=== PATIENT | female | born 1990 | race Two or more races ===

== ENCOUNTER 2019-07-08 16:52 | Emergency (ER) | payer OTHER ==
[2019-07-08 16:58] VITALS: BP 122/81; PULSE 100; TEMP 99.5; BMI 20.9
[2019-07-08] MEDS ORDERED: ACETAMINOPHEN 500 MG TABLET (FP) PO ONE (19:10)
--- NOTE | 2019-07-08 19:10 | PDOC ---
History of Present Illness - General Chief Complaint: Pain Stated Complaint: HEADACHE Time Seen by Provider: 07/08/19 19:06 History Source: Patient - History of Present Illness Initial Comments: 07/08/19 19:37 28 year old female c/o bodyaches, cough chills, fever x 1 day. denies dysuria, hematuria, denies cough, chest , congestion. 1 Past History - Past Medical History Allergies/Adverse Reactions: Allergies Allergy/AdvReac Type Severity Reaction Status Date / Time No Known Allergies Allergy Verified 07/08/19 16:57 COPD: No - Psycho Social/Smoking Cessation Hx Smoking History: Never smoked Review of Systems - Review of Systems Able to Perform ROS?: Yes Is the patient limited Kinyarwanda proficient: No Constitutional: Yes: Fever, Other (bodyaches) : Yes: Flank Pain (left) Neurological: Yes: Headache *Physical Exam - Vital Signs Last Vital Signs Temp Pulse Resp BP Pulse Ox 99.5 F 100 H 18 122/81 99 07/08/19 16:55 07/08/19 16:55 07/08/19 16:55 07/08/19 16:55 07/08/19 16:55 - Physical Exam General Appearance: Yes: Appropriately Dressed HEENT: positive: Normal ENT Inspection Respiratory/Chest: positive: Lungs Clear, Normal Breath Sounds Cardiovascular: positive: Tachycardia Gastrointestinal/Abdominal: positive: Normal Bowel Sounds, Soft. negative: Tender Musculoskeletal: positive: Normal Inspection Extremity: positive: Normal Capillary Refill, Normal Inspection, Normal Range of Motion Integumentary: positive: Normal Color, Dry, Warm Neurologic: positive: Fully Oriented, Alert Medical Decision Making - Medical Decision Making 07/08/19 20:05 A: flu like illness P: influenza chest xray: no acute disease ua urine 07/08/19 20:23 influenza pending. patient signed out to ze R[facility]OL[facility] 07/11/19 20:12 flu negative Discharge - Discharge Information Problems reviewed: Yes Clinical Impression/Diagnosis: Viral illness Disposition: HOME - Follow up/Referral Referrals: Nona Murrieta MD [Primary Care Provider] - - Patient Discharge Instructions Patient Printed Discharge Instructions: DI for Viral Syndrome Additional Instructions: Drink plenty of fluids. Give Tylenol every 4 hours as needed for fever Give ibuprofen then every 6 hours as needed for fever Follow-up with your doctor as soon as possible. Return to the emergency room if symptoms worsen. - Post Discharge Activity Work/Back to School Note: Back to Work
[2019-07-08 20:00] LABS: PH,URINE 5.5 (5.0-8.0); URINE APPEARANCE CLEAR; URINE BILIRUBIN NEGATIVE (NEGATIVE); URINE COLOR YELLOW; URINE GLUCOSE (UA) NEGATIVE (NEGATIVE); URINE KETONE NEGATIVE (NEGATIVE); URINE LEUK ESTERASE NEGATIVE (NEGATIVE); URINE NITRITE NEGATIVE (NEGATIVE); URINE PROTEIN TRACE (NEGATIVE); URINE UROBILINOGEN 0.2 mg/dL (0.2-1.0)
[2019-07-08] MEDS ORDERED: ACETAMINOPHEN 325 MG TABLET (FP) ONE (20:03)
== END 2019-07-08 20:53 | disposition home or self-care (01) ==
LOC: JERFT 16:52
DX: B34.9 Viral infection, unspecified (principal)
CPT/HCPCS: 71046-TC-FY; 81003; 84703; 87804; 99281-25